=== PATIENT | male | born 1970 | race Caucasian/White ===

== ENCOUNTER 2017-07-27 04:35 | Emergency (ER) | payer SELFPAY ==
[~2017-07-27] VITALS: Ht 188 cm; Wt 72.7 kg
[~2017-07-27 04:35] MED LIST: NO HOME MEDS; OMEP40CA37 PO
[2017-07-27] MEDS ORDERED: ondansetron 4mg rapidly disintigrating tab PO ONE (04:50)
[2017-07-27] MEDS ORDERED: pantoprazole 40 MG vial IV ONE (06:25)
[2017-07-27] MEDS ORDERED: haloperidol 5mg tablet PO ONE (06:25)
[2017-07-27] MEDS ORDERED: normal saline 1000ML IV soln IVB ONE (06:25)
[2017-07-27] MEDS ORDERED: ondansetron/PF 4mg/2ml inj IV ONE (06:25)
[2017-07-27 06:50] VITALS: BP 155/94
[2017-07-27 06:58] LABS: BASOPHILS % (AUTO) 0.2 % (0-1); EOSINOPHILS # (AUTO) 0.3 X10'3 (0-0.9); EOSINOPHILS % (AUTO) 2.2 % (0-6); HEMATOCRIT 46.7 % (42.0-52.0); HEMOGLOBIN 16.2 g/dl (14.0-17.9); LYMPHOCYTES # (AUTO) 0.7 X10'3 (1.1-4.8); LYMPHOCYTES % (AUTO) 4.3 % (21-51); MEAN CORPUSCULAR HEMOGLOBIN 31.1 PG (27.0-31.0); MEAN CORPUSCULAR HGB CONC 34.7 % (33.0-36.5); MEAN CORPUSCULAR VOLUME 89.5 FL (78-98); MONOCYTES # (AUTO) 0.3 X10'3 (0-0.9); MONOCYTES % (AUTO) 1.8 % (2-12); NEUTROPHILS # (AUTO) 14.5 X10'3 (1.8-7.7); NEUTROPHILS % (AUTO) 91.5 % (42-75); PLATELET COUNT 348 X10'3 (140-440); RED BLOOD COUNT 5.21 X10'6 (4.70-6.10); RED CELL DISTRIBUTION WIDTH 13.6 % (11.5-14.5); WHITE BLOOD COUNT 15.9 X10'3 (4.5-11.0)
[2017-07-27 07:19] LABS: ALANINE AMINOTRANSFERASE 35 U/L (12-78); ALBUMIN 4.2 G/DL (3.4-5.0); ALBUMIN/GLOBULIN RATIO 1.2 (1.1-1.5); ALKALINE PHOSPHATASE 63 IU/L (46-116); ANION GAP 12 (8-16); ASPARTATE AMINO TRANSFERASE 18 U/L (10-37); BILIRUBIN,TOTAL 0.5 MG/DL (0.1-1.0); BLOOD UREA NITROGEN 18 MG/DL (7-18); BUN/CREATININE RATIO 20.2 (5.4-32.0); CALCIUM 9.7 MG/DL (8.5-10.1); CHLORIDE 105 MMOL/L (99-107); CREATININE 0.89 MG/DL (0.60-1.10); GLUCOSE 143 MG/DL (70-104); LIPASE 187 U/L (73-393); POTASSIUM 3.9 MMOL/L (3.5-5.1); SODIUM 142 MMOL/L (135-145); TOTAL CARBON DIOXIDE 25.1 MMOL/L (24-32); TOTAL PROTEIN 7.8 G/DL (6.4-8.2); eGFR > 90 ML/MIN
[2017-07-27] MEDS ORDERED: proCHLORperazine 10 MG/2 ml inj IV ONE (08:05)
[2017-07-27] MEDS ORDERED: morphine 4 MG/ML inj SYRINge IV ONE (08:25)
[2017-07-27] MEDS ORDERED: morphine 2 MG/ML inj. syringe IV ONE (08:25)
[2017-07-27] MEDS ORDERED: PROC25SU31 RC (09:51)
== END 2017-07-27 10:04 | disposition home or self-care (01) ==
LOC: ER 04:36
DX: G43.A0 Cyclical vomiting, in migraine, not intractable (principal); G89.29 Other chronic pain; F12.10 Cannabis abuse, uncomplicated; Z79.899 Other long term (current) drug therapy
CPT/HCPCS: 36415; 80053; 83690; 85025; 96361; 96374; 96375; 99284; C9113; J0780; J2270; J2405; J7030

== ENCOUNTER 2019-01-13 17:28 | Emergency (ER) | payer OTHER, MEDICAID ==
[~2019-01-13] VITALS: Ht 182.9 cm; Wt 81.8 kg
[~2019-01-13 17:28] MED LIST changes: +OMEP40CA13 PO; -OMEP40CA37 PO
[2019-01-13] MEDS ORDERED: ondansetron/PF 4mg/2ml inj IV ONE ×2 (19:00→22:15)
[2019-01-13] MEDS ORDERED: haloperidol lactate 5mg/ml inj IM ONE (19:00)
[2019-01-13] MEDS ORDERED: LORazepam 2 mg/ml vial IV ONE ×2 (19:00→22:15)
[2019-01-13] MEDS ORDERED: normal saline 1000ML IV soln IVB ONE ×2 (19:00→20:30)
[2019-01-13] MEDS ORDERED: diltiazem 5mg/ml 5ml inj. IV ONE (20:25)
[2019-01-13] MEDS ORDERED: magnesium 2GM in 50ml NS 50 ML IV ONE (20:35)
[2019-01-13 21:06] LABS: BASOPHILS # (AUTO) 0.1 X10'3 (0-0.2); BASOPHILS % (AUTO) 0.9 % (0-1); EOSINOPHILS % (AUTO) 0.2 % (0-6); HEMATOCRIT 48.7 % (42.0-52.0); HEMOGLOBIN 16.3 g/dl (14.0-17.9); LYMPHOCYTES # (AUTO) 0.7 X10'3 (1.1-4.8); MEAN CORPUSCULAR HEMOGLOBIN 30.8 PG (27.0-31.0); MEAN CORPUSCULAR HGB CONC 33.4 g/dL (33.0-36.5); MEAN CORPUSCULAR VOLUME 92.1 FL (78-98); MEAN PLATELET VOLUME 7.4 FL (7.4-10.4); MONOCYTES # (AUTO) 0.6 X10'3 (0-0.9); MONOCYTES % (AUTO) 4.8 % (2-12); NEUTROPHILS # (AUTO) 10.3 X10'3 (1.8-7.7); NEUTROPHILS % (AUTO) 88.1 % (42-75); PLATELET COUNT 318 X10'3 (140-440); RED BLOOD COUNT 5.29 X10'6 (4.70-6.10); RED CELL DISTRIBUTION WIDTH 14.5 % (11.5-14.5); WHITE BLOOD COUNT 11.7 X10'3 (4.5-11.0)
[2019-01-13 21:12] LABS: URINE AMPHETAMINE SCREEN NEGATIVE (Neg); URINE BARBITUATE SCREEN NEGATIVE (Neg); URINE BENZODIAZEPINES SCREEN NEGATIVE (Neg); URINE CANNABINOID SCREEN POSITIVE (Neg); URINE COCAINE SCREEN NEGATIVE (Neg); URINE METHADONE SCREEN NEGATIVE (Neg); URINE OPIATE SCREEN NEGATIVE (Neg); URINE PHENCYCLIDINE SCREEN NEGATIVE (Neg)
[2019-01-13 21:25] LABS: ALANINE AMINOTRANSFERASE 24 U/L (12-78); ALBUMIN/GLOBULIN RATIO 1.1 (1.1-1.5); ALKALINE PHOSPHATASE 58 IU/L (46-116); ANION GAP 10 (8-16); ASPARTATE AMINO TRANSFERASE 14 U/L (10-37); BILIRUBIN,TOTAL 0.3 MG/DL (0.1-1.0); BLOOD UREA NITROGEN 15 MG/DL (7-18); BUN/CREATININE RATIO 17.6 (5.4-32.0); CALCIUM 8.7 MG/DL (8.5-10.1); CHLORIDE 107 MMOL/L (99-107); CREATININE 0.85 MG/DL (0.60-1.10); GLUCOSE 125 MG/DL (70-104); POTASSIUM 4.3 MMOL/L (3.5-5.1); SODIUM 143 MMOL/L (135-145); TOTAL CARBON DIOXIDE 26.5 MMOL/L (24-32); TOTAL PROTEIN 7.5 G/DL (6.4-8.2); eGFR > 90 ML/MIN
[2019-01-13 21:41] LABS: PARTIAL THROMBOPLASTIN TIME 27 SECONDS (22-32)
[2019-01-13] MEDS ORDERED: ketamine 10mg/ml 20ml inj IV ONE (22:15)
[2019-01-13] MEDS ORDERED: ketamine 50 mg/ml 10ml vial IV ONE (22:25)
--- NOTE | 2019-01-13 23:23 | NUR ---
observing pt at bedside s\p syncronized cardioversion. pt is approx 45 mins post procedure and sleeping. he awakes to light sternal rub and verbal stimuli but remains quite sleepy. will continue to monitor. He remains on bedside monitoring equipment
--- NOTE | 2019-01-14 00:45 | NUR ---
pt lives alone and has no ride home. A taxi will be called for patient at a later time.
--- NOTE | 2019-01-14 00:52 | NUR ---
PT CONTINUES TO REST SOUNDLY BUT AROUSABLE TO LIGHT STERNAL RUB AND VOICE. FOLLOWS COMMANDS APPROPRIATELY AND VS WNL FOR PAST HOUR. WILL CONTINUE TO MONITOR
--- NOTE | 2019-01-14 01:39 | NUR ---
pt ambulatory to restroom and back to room
--- NOTE | 2019-01-14 01:42 | NUR ---
pt given water, juice and yogurt
--- NOTE | 2019-01-14 04:12 | NUR ---
no change in pt condition. will continue to monitor.
--- NOTE | 2019-01-14 05:59 | NUR ---
pt ambulated with steady gait to restroom and back to room. He is requesting to go home. We are attempting to locate the policy on how long post procedure pt has to be monitored for since he will not be going home with a responsible adult and will have no one at home to monitor him.
[2019-01-14 06:53] VITALS: BP 139/101
== END 2019-01-14 06:55 | disposition home or self-care (01) ==
LOC: ER 17:28
DX: G43.A0 Cyclical vomiting, in migraine, not intractable (principal); I48.91 Unspecified atrial fibrillation; F12.188 Cannabis abuse with other cannabis-induced disorder; R10.84 Generalized abdominal pain; G89.29 Other chronic pain; Z98.890 Other specified postprocedural states; Z79.899 Other long term (current) drug therapy
CPT/HCPCS: 36415; 71045; 80053; 80305; 84484; 85025; 85610; 85730; 92960; 93005; 94760; 96365; 96372; 96375; 96376; 99152; 99291; J1630; J2060; J2405; J3475; J7030; J3490

== ENCOUNTER 2019-08-24 16:55 | Emergency (ER) | payer MEDICAID, OTHER ==
[~2019-08-24] VITALS: Ht 188 cm; Wt 77.9 kg
[2019-08-24] MEDS ORDERED: TETanus/Pertussis (Acell)/Diphther VAC/PF (Tdap-Adult) 0.5ml syringe IMVAC ONE (17:10)
[2019-08-24] MEDS ORDERED: LIDOcaine 1% W/epiNEPHrine 1:200,000 10ml vial IJ ONE (17:10)
[2019-08-24] MEDS ORDERED: CEPH250T PO (18:16)
--- NOTE | 2019-08-24 18:31 | NUR ---
Report from [facility]
[2019-08-24 19:06] VITALS: BP 136/92
== END 2019-08-24 19:15 | disposition home or self-care (01) ==
LOC: ER 16:55
DX: S61.012A Laceration without foreign body of left thumb without damage to nail, initial encounter (principal); G89.29 Other chronic pain; F12.90 Cannabis use, unspecified, uncomplicated; Z79.899 Other long term (current) drug therapy; W26.0XXA Contact with knife, initial encounter; Y93.89 Activity, other specified; Y92.89 Other specified places as the place of occurrence of the external cause; Y99.8 Other external cause status
CPT/HCPCS: 12002; 90471; 90715; 99283

== ENCOUNTER 2019-08-30 13:40 | Emergency (ER) | payer OTHER ==
[~2019-08-30] VITALS: Ht 188 cm; Wt 81.8 kg
[~2019-08-30 13:40] MED LIST changes: +CEPH250T PO
[2019-08-30] MEDS ORDERED: LORazepam 2 mg/ml vial IV ONE (13:50)
[2019-08-30] MEDS ORDERED: ondansetron/PF 4mg/2ml inj IV ONE (13:50)
[2019-08-30] MEDS ORDERED: normal saline 1000ML IV soln IVB ONE (13:50)
[2019-08-30] MEDS ORDERED: haloperidol lactate 5mg/ml inj IM ONE (13:50)
[2019-08-30 14:19] LABS: BASOPHILS # (AUTO) 0.1 X10'3 (0-0.2); BASOPHILS % (AUTO) 0.7 % (0-1); EOSINOPHILS # (AUTO) 0.4 X10'3 (0-0.9); HEMATOCRIT 48.4 % (42.0-52.0); HEMOGLOBIN 16.5 g/dl (14.0-17.9); LYMPHOCYTES % (AUTO) 15.6 % (21-51); MEAN CORPUSCULAR HEMOGLOBIN 30.9 PG (27.0-31.0); MEAN CORPUSCULAR VOLUME 90.9 FL (78-98); MEAN PLATELET VOLUME 7.3 FL (7.4-10.4); MONOCYTES # (AUTO) 0.6 X10'3 (0-0.9); MONOCYTES % (AUTO) 4.9 % (2-12); NEUTROPHILS # (AUTO) 9.8 X10'3 (1.8-7.7); NEUTROPHILS % (AUTO) 75.8 % (42-75); PLATELET COUNT 346 X10'3 (140-440); RED BLOOD COUNT 5.33 X10'6 (4.70-6.10); RED CELL DISTRIBUTION WIDTH 14.1 % (11.5-14.5); WHITE BLOOD COUNT 12.9 X10'3 (4.5-11.0)
[2019-08-30 14:36] LABS: ALBUMIN/GLOBULIN RATIO 1.2 (1.1-1.5); ALKALINE PHOSPHATASE 67 IU/L (46-116); ANION GAP 9 (8-16); ASPARTATE AMINO TRANSFERASE 20 U/L (10-37); BILIRUBIN,TOTAL 0.4 MG/DL (0.1-1.0); BLOOD UREA NITROGEN 8 MG/DL (7-18); BUN/CREATININE RATIO 8.8 (5.4-32.0); CALCIUM 9.3 MG/DL (8.5-10.1); CHLORIDE 106 MMOL/L (99-107); CREATININE 0.91 MG/DL (0.60-1.10); GLUCOSE 112 MG/DL (70-104); LIPASE 177 U/L (73-393); SODIUM 143 MMOL/L (135-145); TOTAL CARBON DIOXIDE 27.6 MMOL/L (24-32); TOTAL PROTEIN 7.3 G/DL (6.4-8.2); eGFR 89 ML/MIN
[2019-08-30 14:37] LABS: POTASSIUM 4.4 MMOL/L (3.5-5.1)
[2019-08-30 14:45] LABS: ALANINE AMINOTRANSFERASE 15 U/L (12-78)
[2019-08-30 18:16] VITALS: BP 140/70
== END 2019-08-30 18:19 | disposition home or self-care (01) ==
LOC: ER 13:41
DX: R11.15 Cyclical vomiting syndrome unrelated to migraine (principal); R11.2 Nausea with vomiting, unspecified; G89.29 Other chronic pain; F12.90 Cannabis use, unspecified, uncomplicated; F17.200 Nicotine dependence, unspecified, uncomplicated; Z98.890 Other specified postprocedural states; Z79.2 Long term (current) use of antibiotics; Z79.899 Other long term (current) drug therapy
CPT/HCPCS: 36415; 80053; 83690; 85025; 96361; 96372; 96374; 96375; 99284; J1630; J2060; J2405; J7030

== ENCOUNTER 2019-10-11 13:56 | Emergency (ER) | payer OTHER ==
[~2019-10-11] VITALS: Ht 188 cm; Wt 80.0 kg
[~2019-10-11 13:56] MED LIST changes: -CEPH250T PO
[2019-10-11 14:42] LABS: BASOPHILS # (AUTO) 0.1 X10'3 (0-0.2); BASOPHILS % (AUTO) 0.6 % (0-1); EOSINOPHILS # (AUTO) 0.4 X10'3 (0-0.9); EOSINOPHILS % (AUTO) 2.4 % (0-6); HEMATOCRIT 49.8 % (42.0-52.0); HEMOGLOBIN 16.8 g/dl (14.0-17.9); MEAN CORPUSCULAR HEMOGLOBIN 30.9 PG (27.0-31.0); MEAN CORPUSCULAR HGB CONC 33.7 g/dL (33.0-36.5); MEAN CORPUSCULAR VOLUME 91.5 FL (78-98); MEAN PLATELET VOLUME 7.7 FL (7.4-10.4); MONOCYTES # (AUTO) 0.7 X10'3 (0-0.9); MONOCYTES % (AUTO) 4.6 % (2-12); NEUTROPHILS # (AUTO) 12.4 X10'3 (1.8-7.7); NEUTROPHILS % (AUTO) 79.4 % (42-75); PLATELET COUNT 338 X10'3 (140-440); RED BLOOD COUNT 5.44 X10'6 (4.70-6.10); RED CELL DISTRIBUTION WIDTH 14.1 % (11.5-14.5); WHITE BLOOD COUNT 15.6 X10'3 (4.5-11.0)
[2019-10-11 14:58] LABS: ALANINE AMINOTRANSFERASE 18 U/L (12-78); ALBUMIN 4.3 G/DL (3.4-5.0); ALBUMIN/GLOBULIN RATIO 1.2 (1.1-1.5); ALKALINE PHOSPHATASE 71 IU/L (46-116); ANION GAP 11 (8-16); ASPARTATE AMINO TRANSFERASE 16 U/L (10-37); BILIRUBIN,TOTAL 0.5 MG/DL (0.1-1.0); BLOOD UREA NITROGEN 9 MG/DL (7-18); BUN/CREATININE RATIO 9.3 (5.4-32.0); CALCIUM 9.9 MG/DL (8.5-10.1); CHLORIDE 106 MMOL/L (99-107); CREATININE 0.97 MG/DL (0.60-1.10); GLUCOSE 119 MG/DL (70-104); SODIUM 144 MMOL/L (135-145); TOTAL CARBON DIOXIDE 27.1 MMOL/L (24-32); TOTAL PROTEIN 7.8 G/DL (6.4-8.2); eGFR 82 ML/MIN
[2019-10-11] MEDS ORDERED: diphenhydrAMINE 50 mg/ml inj IV ONE (15:15)
[2019-10-11] MEDS ORDERED: LORazepam 2 mg/ml vial IV ONE (15:15)
[2019-10-11] MEDS ORDERED: proCHLORperazine 10 MG/2 ml inj IV ONE (15:15)
[2019-10-11] MEDS ORDERED: normal saline 1000ml 1,000 ML IV ONE (15:15)
[2019-10-11] MEDS ORDERED: ondansetron/PF 4mg/2ml inj IV ONE (15:25)
[2019-10-11] MEDS ORDERED: PROC-8 PO (17:16)
[2019-10-11] MEDS ORDERED: ONDA8TAB6 PO (17:16)
--- NOTE | 2019-10-11 18:03 | NUR ---
ATTEMPTED TO AWAKEN PATIENT FOR DISCHARGE. PATIENT IS VERY DROWSY AND DOES NOT WANT TO AWAKEN. STATES HE WILL HAVE TO CALL HIS SON FOR RIDE HOME, BUT DOES NOT HAVE HIS SON'S PHONE NUMBER AVAILABLE. DOZING ON GURNEY IN GOOD CONDITION AND IMPROVED NAUSEA AT THIS TIME.
[2019-10-11 18:28] VITALS: BP 146/83
== END 2019-10-11 19:54 | disposition home or self-care (01) ==
LOC: ER 13:56
DX: R11.15 Cyclical vomiting syndrome unrelated to migraine (principal); G89.29 Other chronic pain; F12.90 Cannabis use, unspecified, uncomplicated; Z79.899 Other long term (current) drug therapy
CPT/HCPCS: 36415; 80053; 85025; 96361; 96374; 96375; 99284; J0780; J1200; J2060; J2405; J7030

== ENCOUNTER 2019-11-30 17:48 | Emergency (ER) | payer OTHER ==
[~2019-11-30] VITALS: Ht 188 cm; Wt 81.8 kg
[~2019-11-30 17:48] MED LIST changes: +ONDA8TAB6 PO; +PROC-8 PO
[2019-11-30] MEDS ORDERED: morphine 4 MG/ML inj SYRINge IV STA (17:59)
[2019-11-30] MEDS ORDERED: ondansetron/PF 4mg/2ml inj IV ONE (18:00)
[2019-11-30] MEDS ORDERED: normal saline 1000ML IV soln IVB ONE ×2 (18:00→19:40)
[2019-11-30] MEDS ORDERED: proCHLORperazine 10 MG/2 ml inj IV ONE (18:10)
[2019-11-30 18:28] LABS: BASOPHILS % (AUTO) 0.3 % (0-1); EOSINOPHILS % (AUTO) 0.1 % (0-6); HEMATOCRIT 46.3 % (42.0-52.0); LYMPHOCYTES # (AUTO) 0.9 X10'3 (1.1-4.8); LYMPHOCYTES % (AUTO) 5.8 % (21-51); MEAN CORPUSCULAR HEMOGLOBIN 31.4 PG (27.0-31.0); MEAN CORPUSCULAR HGB CONC 34.6 g/dL (33.0-36.5); MEAN CORPUSCULAR VOLUME 90.5 FL (78-98); MEAN PLATELET VOLUME 7.4 FL (7.4-10.4); MONOCYTES # (AUTO) 0.6 X10'3 (0-0.9); MONOCYTES % (AUTO) 3.6 % (2-12); NEUTROPHILS # (AUTO) 14.6 X10'3 (1.8-7.7); NEUTROPHILS % (AUTO) 90.2 % (42-75); PLATELET COUNT 336 X10'3 (140-440); RED BLOOD COUNT 5.11 X10'6 (4.70-6.10); RED CELL DISTRIBUTION WIDTH 13.6 % (11.5-14.5); WHITE BLOOD COUNT 16.1 X10'3 (4.5-11.0)
[2019-11-30 18:29] LABS: ANION GAP 11 (8-16); CHLORIDE 106 MMOL/L (99-107); GLUCOSE 146 MG/DL (70-104); SODIUM 140 MMOL/L (135-145); TOTAL CARBON DIOXIDE 22.6 MMOL/L (24-32)
[2019-11-30 18:30] LABS: ALANINE AMINOTRANSFERASE 26 U/L (12-78); ALBUMIN 4.3 G/DL (3.4-5.0); ALBUMIN/GLOBULIN RATIO 1.2 (1.1-1.5); ALKALINE PHOSPHATASE 56 IU/L (46-116); ASPARTATE AMINO TRANSFERASE 16 U/L (10-37); BILIRUBIN,TOTAL 0.5 MG/DL (0.1-1.0); BLOOD UREA NITROGEN 10 MG/DL (7-18); BUN/CREATININE RATIO 8.9 (5.4-32.0); CALCIUM 9.3 MG/DL (8.5-10.1); CREATININE 1.12 MG/DL (0.60-1.10); LIPASE 92 U/L (73-393); TOTAL PROTEIN 7.8 G/DL (6.4-8.2); eGFR 70 ML/MIN
--- NOTE | 2019-11-30 18:35 | NUR ---
pt to ct of abd. just givenmsiv 6 mg iv and compazine and zofran dc'd as pt received 8 mg in route with ems. pt is 8 out of 10 constant pain to mid and lower abdome, non radiating. bp 162/90. aboe to stand and get in wc independatly.
[2019-11-30] MEDS ORDERED: PROC-8 PO (19:49)
[2019-11-30 21:50] VITALS: BP 162/109
== END 2019-11-30 21:54 | disposition home or self-care (01) ==
LOC: ER 17:48
DX: R11.15 Cyclical vomiting syndrome unrelated to migraine (principal); F12.10 Cannabis abuse, uncomplicated; R10.84 Generalized abdominal pain; G89.29 Other chronic pain; Z98.890 Other specified postprocedural states; Z79.899 Other long term (current) drug therapy
CPT/HCPCS: 36415; 74176; 80053; 83605; 83690; 84145; 85025; 87040; 96361; 96374; 96375; 99285; J0780; J2270; J7030

== ENCOUNTER 2019-12-02 08:46 | Emergency (ER) | payer SELFPAY ==
[~2019-12-02] VITALS: Ht 188 cm; Wt 82.0 kg
[2019-12-02] MEDS ORDERED: haloperidol lactate 5mg/ml inj IM ONE (09:05)
[2019-12-02] MEDS ORDERED: ketorolac trometh. 30mg/ml inj. IV ONE (09:05)
[2019-12-02] MEDS ORDERED: diphenhydrAMINE 50 mg/ml inj IV ONE (09:05)
[2019-12-02] MEDS ORDERED: normal saline 1000ML IV soln IVB ONE (09:05)
[2019-12-02] MEDS ORDERED: LORazepam 2 mg/ml vial IV ONE (09:05)
[2019-12-02] MEDS ORDERED: ondansetron/PF 4mg/2ml inj IV ONE (09:05)
[2019-12-02 09:22] LABS: BASOPHILS # (AUTO) 0.1 X10'3 (0-0.2); EOSINOPHILS # (AUTO) 0.1 X10'3 (0-0.9); EOSINOPHILS % (AUTO) 0.6 % (0-6); HEMATOCRIT 46.7 % (42.0-52.0); HEMOGLOBIN 15.8 g/dl (14.0-17.9); LYMPHOCYTES # (AUTO) 1.9 X10'3 (1.1-4.8); LYMPHOCYTES % (AUTO) 12.8 % (21-51); MEAN CORPUSCULAR HEMOGLOBIN 30.4 PG (27.0-31.0); MEAN CORPUSCULAR HGB CONC 33.8 g/dL (33.0-36.5); MEAN PLATELET VOLUME 7.1 FL (7.4-10.4); MONOCYTES # (AUTO) 0.9 X10'3 (0-0.9); NEUTROPHILS # (AUTO) 11.9 X10'3 (1.8-7.7); NEUTROPHILS % (AUTO) 79.6 % (42-75); PLATELET COUNT 359 X10'3 (140-440); RED BLOOD COUNT 5.18 X10'6 (4.70-6.10); RED CELL DISTRIBUTION WIDTH 13.8 % (11.5-14.5)
[2019-12-02 09:35] LABS: ALANINE AMINOTRANSFERASE 24 U/L (12-78); ALBUMIN 4.1 G/DL (3.4-5.0); ALBUMIN/GLOBULIN RATIO 1.2 (1.1-1.5); ALKALINE PHOSPHATASE 53 IU/L (46-116); ANION GAP 10 (8-16); ASPARTATE AMINO TRANSFERASE 16 U/L (10-37); BILIRUBIN,TOTAL 0.6 MG/DL (0.1-1.0); BLOOD UREA NITROGEN 13 MG/DL (7-18); BUN/CREATININE RATIO 13.3 (5.4-32.0); CALCIUM 9.3 MG/DL (8.5-10.1); CHLORIDE 104 MMOL/L (99-107); CREATININE 0.98 MG/DL (0.60-1.10); GLUCOSE 126 MG/DL (70-104); LIPASE 148 U/L (73-393); POTASSIUM 3.8 MMOL/L (3.5-5.1); SODIUM 139 MMOL/L (135-145); TOTAL CARBON DIOXIDE 24.7 MMOL/L (24-32); TOTAL PROTEIN 7.6 G/DL (6.4-8.2); eGFR 81 ML/MIN
--- NOTE | 2019-12-02 10:48 | NUR ---
notified dr anderson that pt was unable to drink water just had one sip and stated that he is feeling upset in his abdomen,recheked the vitals ,dr anderson said he is going to order compazine .
[2019-12-02] MEDS ORDERED: proCHLORperazine 10 MG/2 ml inj IV ONE (10:50)
--- NOTE | 2019-12-02 10:56 | NUR ---
pt medicated with compazine informed that will try with po challenge in 10-15 mins.pt verbalized understanding.
[2019-12-02 11:13] LABS: CLARITY,URINE CLEAR (Clear); COLOR,URINE YELLOW (Yellow); GLUCOSE, URINE NEGATIVE (Neg); KETONES,URINE 15 mg/dl (Neg); LEUKOCYTE ESTERASE ,URINE NEGATIVE (Neg); NITRITES, URINE NEGATIVE (Neg); OCCULT BLOOD,URINE SMALL (Neg); PH,URINE 7.5 (4.8-8.0); PROTEIN,URINE NEGATIVE (Neg); UROBILINOGEN,URINE 0.2 E.U/dL (0.2-1.0)
[2019-12-02 11:14] LABS: UA COLLECTION TYPE VOIDED
--- NOTE | 2019-12-02 11:24 | NUR ---
pt reassesd for nausea after the po fluid ,pt stated that he is nauseous but actually pt was able to drink fluid and no vomiting noted ,pt more sleepy ,just want to sleep nad rest ,asked if he has ride available pt stated that he might have ride by cab or call friend ,md justin armstrong and also primary nurse.
[2019-12-02 11:25] LABS: WBC,URINE 0-4 /HPF (0-4)
[2019-12-02 11:26] LABS: BACTERIA,URINE NONE SEEN /HPF (Neg); SQUAMOUS EPITHELIAL CELL,UR FEW /LPF (FEW)
[2019-12-02 12:25] VITALS: BP 101/76
== END 2019-12-02 12:24 | disposition home or self-care (01) ==
LOC: ER 08:47
DX: R11.15 Cyclical vomiting syndrome unrelated to migraine (principal); R11.2 Nausea with vomiting, unspecified; G89.29 Other chronic pain; F17.200 Nicotine dependence, unspecified, uncomplicated; F12.90 Cannabis use, unspecified, uncomplicated; Z98.890 Other specified postprocedural states; Z79.899 Other long term (current) drug therapy
CPT/HCPCS: 36415; 80053; 81001; 83690; 85025; 96361; 96372; 96374; 96375; 99285; J0780; J1200; J1630; J1885; J2060; J2405; J7030

== ENCOUNTER 2019-12-03 09:11 | Emergency (ER) | payer SELFPAY ==
[~2019-12-03] VITALS: Ht 180.3 cm; Wt 57.0 kg
[2019-12-03] MEDS ORDERED: normal saline 1000ML IV soln IVB ONE (09:20)
[2019-12-03] MEDS ORDERED: diphenhydrAMINE 50 mg/ml inj IV ONE (09:20)
[2019-12-03] MEDS ORDERED: haloperidol lactate 5mg/ml inj IM ONE (09:20)
[2019-12-03] MEDS ORDERED: proCHLORperazine 10 MG/2 ml inj IV ONE (09:20)
[2019-12-03 11:00] VITALS: BP 147/87
== END 2019-12-03 11:02 | disposition home or self-care (01) ==
LOC: ER 09:11
DX: R11.15 Cyclical vomiting syndrome unrelated to migraine (principal); R11.2 Nausea with vomiting, unspecified; F12.10 Cannabis abuse, uncomplicated; G89.29 Other chronic pain; Z98.890 Other specified postprocedural states; Z79.899 Other long term (current) drug therapy
CPT/HCPCS: 96361; 96372; 96374; 96375; 99284; J0780; J1200; J1630; J7030

== ENCOUNTER 2020-02-21 11:30 | Emergency (ER) | payer OTHER ==
[~2020-02-21] VITALS: Ht 177.8 cm; Wt 90.0 kg
[2020-02-21] MEDS ORDERED: diphenhydrAMINE 25mg capsule PO ONE (13:20)
[2020-02-21] MEDS ORDERED: normal saline 1000ML IV soln IVB ONE ×2 (13:20→14:40)
[2020-02-21] MEDS ORDERED: dicyclomine 10 MG capsule PO ONE (13:20)
[2020-02-21] MEDS ORDERED: haloperidol lactate 5mg/ml inj IM ONE (13:20)
[2020-02-21 13:45] VITALS: BP 156/93
[2020-02-21 14:04] LABS: BASOPHILS # (AUTO) 0.1 X10'3 (0-0.2); BASOPHILS % (AUTO) 0.8 % (0-1); EOSINOPHILS % (AUTO) 0.1 % (0-6); HEMOGLOBIN 17.8 g/dl (14.0-17.9); LYMPHOCYTES # (AUTO) 1.9 X10'3 (1.1-4.8); LYMPHOCYTES % (AUTO) 12.6 % (21-51); MEAN CORPUSCULAR HEMOGLOBIN 30.5 PG (27.0-31.0); MEAN CORPUSCULAR HGB CONC 34.2 g/dL (33.0-36.5); MEAN CORPUSCULAR VOLUME 89.3 FL (78-98); MEAN PLATELET VOLUME 7.3 FL (7.4-10.4); MONOCYTES # (AUTO) 1.2 X10'3 (0-0.9); MONOCYTES % (AUTO) 8.1 % (2-12); NEUTROPHILS # (AUTO) 11.6 X10'3 (1.8-7.7); NEUTROPHILS % (AUTO) 78.4 % (42-75); PLATELET COUNT 398 X10'3 (140-440); RED BLOOD COUNT 5.82 X10'6 (4.70-6.10); RED CELL DISTRIBUTION WIDTH 13.4 % (11.5-14.5); WHITE BLOOD COUNT 14.8 X10'3 (4.5-11.0)
[2020-02-21 14:18] LABS: ALANINE AMINOTRANSFERASE 19 U/L (12-78); ALBUMIN 4.7 G/DL (3.4-5.0); ALBUMIN/GLOBULIN RATIO 1.2 (1.1-1.5); ALKALINE PHOSPHATASE 67 IU/L (46-116); ANION GAP 13 (8-16); ASPARTATE AMINO TRANSFERASE 9 U/L (10-37); BLOOD UREA NITROGEN 20 MG/DL (7-18); BUN/CREATININE RATIO 18.2 (5.4-32.0); CALCIUM 10.2 MG/DL (8.5-10.1); CHLORIDE 96 MMOL/L (99-107); GLUCOSE 125 MG/DL (70-104); LIPASE 114 U/L (73-393); POTASSIUM 3.6 MMOL/L (3.5-5.1); SODIUM 134 MMOL/L (135-145); TOTAL CARBON DIOXIDE 24.6 MMOL/L (24-32); TOTAL PROTEIN 8.5 G/DL (6.4-8.2); eGFR 71 ML/MIN
== END 2020-02-21 16:10 | disposition home or self-care (01) ==
LOC: ER 11:31
DX: R11.15 Cyclical vomiting syndrome unrelated to migraine (principal); R11.2 Nausea with vomiting, unspecified; R10.84 Generalized abdominal pain; R06.02 Shortness of breath; G89.29 Other chronic pain; F12.90 Cannabis use, unspecified, uncomplicated; Z98.890 Other specified postprocedural states; Z79.899 Other long term (current) drug therapy
CPT/HCPCS: 36415; 80053; 83690; 85025; 96360; 96361; 96372; 99283; J1630; J7030; Q0163

== ENCOUNTER 2020-02-22 08:40 | Emergency (ER) | payer OTHER ==
[~2020-02-22] VITALS: Ht 188 cm; Wt 77.3 kg
[2020-02-22] MEDS ORDERED: diphenhydrAMINE 50 mg/ml inj IV ONE (09:35)
[2020-02-22] MEDS ORDERED: haloperidol lactate 5mg/ml inj IM ONE (09:35)
[2020-02-22] MEDS ORDERED: ketorolac tromethamine 15mg/ml inj. IV ONE (09:35)
[2020-02-22] MEDS ORDERED: LORazepam 2 mg/ml vial IV ONE (09:35)
[2020-02-22 12:09] VITALS: BP 107/65
== END 2020-02-22 12:16 | disposition home or self-care (01) ==
LOC: ER 08:40
DX: R11.15 Cyclical vomiting syndrome unrelated to migraine (principal); R11.2 Nausea with vomiting, unspecified; R19.7 Diarrhea, unspecified; R10.13 Epigastric pain; G89.29 Other chronic pain; F12.90 Cannabis use, unspecified, uncomplicated; Z98.890 Other specified postprocedural states; Z79.899 Other long term (current) drug therapy
CPT/HCPCS: 76700; 96372; 96374; 96375; 99285; J1200; J1630; J1885; J2060

== ENCOUNTER 2020-02-27 01:11 | Emergency (ER) | payer OTHER ==
[~2020-02-27] VITALS: Ht 190.5 cm; Wt 75.0 kg
[2020-02-27 01:18] VITALS: BP 176/109
[2020-02-27] MEDS ORDERED: normal saline 1000ML IV soln IVB ONE (01:25)
[2020-02-27] MEDS ORDERED: morphine 4 MG/ML inj SYRINge IV PRN (01:25)
[2020-02-27] MEDS ORDERED: ketorolac trometh. 30mg/ml inj. IV ONE (01:25)
[2020-02-27] MEDS ORDERED: ondansetron/PF 4mg/2ml inj IV ONE (01:25)
[2020-02-27 01:33] LABS: BASOPHILS # (AUTO) 0.1 X10'3 (0-0.2); BASOPHILS % (AUTO) 0.5 % (0-1); EOSINOPHILS # (AUTO) 0.2 X10'3 (0-0.9); EOSINOPHILS % (AUTO) 1.1 % (0-6); HEMATOCRIT 44.3 % (42.0-52.0); HEMOGLOBIN 15.6 g/dl (14.0-17.9); LYMPHOCYTES % (AUTO) 12.8 % (21-51); MEAN CORPUSCULAR HEMOGLOBIN 31.7 PG (27.0-31.0); MEAN CORPUSCULAR HGB CONC 35.2 g/dL (33.0-36.5); MEAN PLATELET VOLUME 6.9 FL (7.4-10.4); MONOCYTES # (AUTO) 1.1 X10'3 (0-0.9); MONOCYTES % (AUTO) 6.9 % (2-12); NEUTROPHILS # (AUTO) 12.3 X10'3 (1.8-7.7); NEUTROPHILS % (AUTO) 78.7 % (42-75); PLATELET COUNT 355 X10'3 (140-440); RED BLOOD COUNT 4.92 X10'6 (4.70-6.10); RED CELL DISTRIBUTION WIDTH 13.1 % (11.5-14.5); WHITE BLOOD COUNT 15.6 X10'3 (4.5-11.0)
[2020-02-27] MEDS ORDERED: haloperidol lactate 5mg/ml inj IM ONE (01:40)
[2020-02-27] MEDS ORDERED: diphenhydrAMINE 50 mg/ml inj IV ONE (01:40)
[2020-02-27 01:45] LABS: ALANINE AMINOTRANSFERASE 18 U/L (12-78); ALBUMIN/GLOBULIN RATIO 1.3 (1.1-1.5); ALKALINE PHOSPHATASE 56 IU/L (46-116); ANION GAP 10 (8-16); ASPARTATE AMINO TRANSFERASE 9 U/L (10-37); BILIRUBIN,TOTAL 0.6 MG/DL (0.1-1.0); BLOOD UREA NITROGEN 9 MG/DL (7-18); BUN/CREATININE RATIO 10.5 (5.4-32.0); CALCIUM 8.9 MG/DL (8.5-10.1); CHLORIDE 100 MMOL/L (99-107); CREATININE 0.86 MG/DL (0.60-1.10); GLUCOSE 124 MG/DL (70-104); LIPASE 149 U/L (73-393); POTASSIUM 3.3 MMOL/L (3.5-5.1); SODIUM 137 MMOL/L (135-145); TOTAL PROTEIN 7.1 G/DL (6.4-8.2); eGFR > 90 ML/MIN
--- NOTE | 2020-02-27 01:51 | NUR ---
pt unable to provide urine sample at this time- will check back with patient after IV bolus finishes
[2020-02-27 02:57] LABS: CLARITY,URINE CLEAR (Clear); COLOR,URINE YELLOW (Yellow); GLUCOSE, URINE NEGATIVE (Neg); KETONES,URINE 15 mg/dl (Neg); LEUKOCYTE ESTERASE ,URINE NEGATIVE (Neg); NITRITES, URINE NEGATIVE (Neg); OCCULT BLOOD,URINE TRACE-INTACT (Neg); PH,URINE 7.5 (4.8-8.0); PROTEIN,URINE NEGATIVE (Neg); UROBILINOGEN,URINE 0.2 E.U/dL (0.2-1.0)
[2020-02-27 03:03] LABS: UA COLLECTION TYPE URINAL
[2020-02-27 03:06] LABS: BACTERIA,URINE NONE SEEN /HPF (Neg); RBC,URINE 0-2 /HPF (0-2); SQUAMOUS EPITHELIAL CELL,UR NONE SEEN /LPF (FEW); WBC,URINE NONE SEEN /HPF (0-4)
== END 2020-02-27 03:11 | disposition home or self-care (01) ==
LOC: ER 01:12
DX: R11.15 Cyclical vomiting syndrome unrelated to migraine (principal); F12.10 Cannabis abuse, uncomplicated; G89.29 Other chronic pain; K56.609 Unspecified intestinal obstruction, unspecified as to partial versus complete obstruction; Z79.899 Other long term (current) drug therapy; Z98.890 Other specified postprocedural states
CPT/HCPCS: 36415; 80053; 81001; 83690; 85025; 96361; 96372; 96374; 96375; 99284; J1200; J1630; J1885; J2270; J2405; J7030

== ENCOUNTER 2020-02-28 18:46 | Emergency (ER) | payer OTHER ==
[~2020-02-28] VITALS: Ht 188 cm; Wt 75.0 kg
[2020-02-28] MEDS ORDERED: normal saline 1000ML IV soln IV ONE (19:00)
[2020-02-28] MEDS ORDERED: haloperidol lactate 5mg/ml inj IM ONE (19:00)
[2020-02-28] MEDS ORDERED: LORazepam 2 mg/ml vial IV ONE (19:00)
[2020-02-28] MEDS ORDERED: famotidine/PF 10 mg/ml inj IV ONE (19:40)
[2020-02-28 19:44] LABS: HEMOGLOBIN 15.6 g/dl (14.0-17.9); MEAN PLATELET VOLUME 7.2 FL (7.4-10.4); WHITE BLOOD COUNT 18.4 X10'3 (4.5-11.0)
[2020-02-28 19:46] LABS: BASOPHILS # (AUTO) 0.2 X10'3 (0-0.2); BASOPHILS % (AUTO) 0.9 % (0-1); EOSINOPHILS # (AUTO) 0.2 X10'3 (0-0.9); HEMATOCRIT 44.9 % (42.0-52.0); LYMPHOCYTES # (AUTO) 1.4 X10'3 (1.1-4.8); LYMPHOCYTES % (AUTO) 7.6 % (21-51); MEAN CORPUSCULAR HEMOGLOBIN 31.7 PG (27.0-31.0); MEAN CORPUSCULAR HGB CONC 34.7 g/dL (33.0-36.5); MEAN CORPUSCULAR VOLUME 91.5 FL (78-98); MONOCYTES % (AUTO) 5.7 % (2-12); NEUTROPHILS # (AUTO) 15.6 X10'3 (1.8-7.7); NEUTROPHILS % (AUTO) 84.8 % (42-75); PLATELET COUNT 381 X10'3 (140-440); RED BLOOD COUNT 4.91 X10'6 (4.70-6.10); RED CELL DISTRIBUTION WIDTH 13.6 % (11.5-14.5)
[2020-02-28 19:47] LABS: ALANINE AMINOTRANSFERASE 15 U/L (12-78); ALBUMIN 4.4 G/DL (3.4-5.0); ALBUMIN/GLOBULIN RATIO 1.4 (1.1-1.5); ALKALINE PHOSPHATASE 62 IU/L (46-116); ANION GAP 8 (8-16); ASPARTATE AMINO TRANSFERASE 13 U/L (10-37); BILIRUBIN,TOTAL 0.4 MG/DL (0.1-1.0); BLOOD UREA NITROGEN 9 MG/DL (7-18); BUN/CREATININE RATIO 10.5 (5.4-32.0); CALCIUM 9.2 MG/DL (8.5-10.1); CHLORIDE 102 MMOL/L (99-107); CREATININE 0.86 MG/DL (0.60-1.10); GLUCOSE 127 MG/DL (70-104); LIPASE 247 U/L (73-393); POTASSIUM 3.7 MMOL/L (3.5-5.1); SODIUM 139 MMOL/L (135-145); TOTAL CARBON DIOXIDE 29.3 MMOL/L (24-32); TOTAL PROTEIN 7.6 G/DL (6.4-8.2); eGFR > 90 ML/MIN
--- NOTE | 2020-02-28 20:54 | NUR ---
Patient resting comfortably
--- NOTE | 2020-02-28 23:34 | NUR ---
PT WALKED 50 FEET WITH NO DIFFICULTY. CAB CALLED FOR PT DUE TO MEDICATION ADMINISTRATION IN ER, PT PAYING. WAITING IN LOBBY FOR CAB
[2020-02-28 23:35] VITALS: BP 118/78
== END 2020-02-28 23:47 | disposition home or self-care (01) ==
LOC: ER 18:47
DX: F12.188 Cannabis abuse with other cannabis-induced disorder (principal); R11.15 Cyclical vomiting syndrome unrelated to migraine; G89.29 Other chronic pain; R10.10 Upper abdominal pain, unspecified; Z79.899 Other long term (current) drug therapy
CPT/HCPCS: 80053; 83690; 85025; 96361; 96372; 96374; 96375; 99284; J1630; J2060; J3490; J7030

== ENCOUNTER 2020-03-07 09:22 | Emergency (ER) | payer OTHER ==
[~2020-03-07] VITALS: Ht 188 cm; Wt 72.0 kg
[2020-03-07] MEDS ORDERED: mag hydrox/Alum hydrox/simeth 30ml oral suspension PO ONE (10:25)
[2020-03-07] MEDS ORDERED: famotidine/PF 10 mg/ml inj IV ONE (10:25)
[2020-03-07] MEDS ORDERED: normal saline 1000ml 1,000 ML IV ONE (10:25)
[2020-03-07] MEDS ORDERED: pantoprazole 40 MG vial IV ONE (10:25)
[2020-03-07] MEDS ORDERED: LIDOcaine Viscous 15ml cup MM ONE (10:25)
[2020-03-07 10:59] LABS: BASOPHILS # (AUTO) 0.1 X10'3 (0-0.2); BASOPHILS % (AUTO) 0.8 % (0-1); EOSINOPHILS # (AUTO) 0.1 X10'3 (0-0.9); EOSINOPHILS % (AUTO) 1.1 % (0-6); HEMATOCRIT 50.4 % (42.0-52.0); HEMOGLOBIN 17.6 g/dl (14.0-17.9); LYMPHOCYTES # (AUTO) 1.7 X10'3 (1.1-4.8); LYMPHOCYTES % (AUTO) 13.4 % (21-51); MEAN CORPUSCULAR HEMOGLOBIN 31.8 PG (27.0-31.0); MEAN PLATELET VOLUME 6.7 FL (7.4-10.4); MONOCYTES % (AUTO) 7.5 % (2-12); NEUTROPHILS # (AUTO) 9.9 X10'3 (1.8-7.7); NEUTROPHILS % (AUTO) 77.2 % (42-75); PLATELET COUNT 467 X10'3 (140-440); RED BLOOD COUNT 5.53 X10'6 (4.70-6.10); RED CELL DISTRIBUTION WIDTH 13.6 % (11.5-14.5); WHITE BLOOD COUNT 12.8 X10'3 (4.5-11.0)
[2020-03-07 11:12] LABS: ALANINE AMINOTRANSFERASE 23 U/L (12-78); ALBUMIN 4.4 G/DL (3.4-5.0); ALBUMIN/GLOBULIN RATIO 1.2 (1.1-1.5); ALKALINE PHOSPHATASE 64 IU/L (46-116); ANION GAP 13 (8-16); ASPARTATE AMINO TRANSFERASE 13 U/L (10-37); BILIRUBIN,TOTAL 0.6 MG/DL (0.1-1.0); BLOOD UREA NITROGEN 18 MG/DL (7-18); BUN/CREATININE RATIO 18.9 (5.4-32.0); CALCIUM 9.9 MG/DL (8.5-10.1); CHLORIDE 98 MMOL/L (99-107); CREATININE 0.95 MG/DL (0.60-1.10); GLUCOSE 113 MG/DL (70-104); LIPASE 137 U/L (73-393); POTASSIUM 3.9 MMOL/L (3.5-5.1); SODIUM 135 MMOL/L (135-145); TOTAL CARBON DIOXIDE 24.1 MMOL/L (24-32); TOTAL PROTEIN 8.2 G/DL (6.4-8.2); eGFR 84 ML/MIN
[2020-03-07] MEDS ORDERED: ONDA4TAB6 PO (11:22)
[2020-03-07] MEDS ORDERED: PANT20TA18 PO (11:22)
[2020-03-07 11:32] VITALS: BP 152/98
[2020-03-08] MEDS ORDERED: PROM25SU9 RC (20:00)
== END 2020-03-07 11:37 | disposition home or self-care (01) ==
LOC: ER 09:22
DX: R11.15 Cyclical vomiting syndrome unrelated to migraine (principal); R10.84 Generalized abdominal pain; R53.83 Other fatigue; R11.2 Nausea with vomiting, unspecified; R53.1 Weakness; G89.29 Other chronic pain; F12.90 Cannabis use, unspecified, uncomplicated; Z98.890 Other specified postprocedural states; Z79.899 Other long term (current) drug therapy
CPT/HCPCS: 36415; 80053; 83690; 85025; 96361; 96374; 96375; 99284; C9113; J3490; J7030

== ENCOUNTER 2020-03-08 16:33 | Emergency (ER) | payer OTHER ==
[~2020-03-08] VITALS: Ht 188 cm; Wt 73.0 kg
[~2020-03-08 16:33] MED LIST changes: +ONDA4TAB6 PO; +PANT20TA18 PO
[2020-03-08] MEDS ORDERED: dextrose 5%-normal saline 1,000 ML IV ONE (18:20)
[2020-03-08] MEDS ORDERED: diphenhydrAMINE 50 mg/ml inj IV ONE (18:25)
[2020-03-08] MEDS ORDERED: metoclopramide 5 mg/ml inj IV ONE (18:25)
[2020-03-08] MEDS ORDERED: LORazepam 2 mg/ml vial IV ONE (18:25)
[2020-03-08] MEDS ORDERED: haloperidol lactate 5mg/ml inj IM ONE (18:25)
[2020-03-08] MEDS ORDERED: ondansetron/PF 4mg/2ml inj IV ONE (18:25)
[2020-03-08] MEDS ORDERED: pantoprazole 40 MG vial IV ONE (18:55)
[2020-03-08] MEDS ORDERED: ketorolac trometh. 30mg/ml inj. IV ONE (18:55)
--- NOTE | 2020-03-08 19:43 | NUR ---
PT GIVEN MANY IV MEDS FOR PAIN AND NAUSEA. PAIN WAS 9 OUT OF 10, STABBING BURNING TO MID AND UPPER ABD. PT REPORTS NO BM IN 1 WEEK AND WAS ONLY SMALL LAMT OF DIARRHEA. STATES HAS HAD NO SOLID FOOD AND HAS ONLY BEEN DRINKING REYES SUN JUICES, OFTEN VOMITING THIS UP. PTS FRIEND BROUGHT HIM HERE. STATES HE WILL NEED TO CALL A TAXI FOR A RIDE HOME. PT IS POLITE AND COOPERATIVE. ACCUCHECK 137, I WILL ASK DR. GORDON IF D5 BOLUS STILL NECESSARY.
--- NOTE | 2020-03-08 19:46 | NUR ---
PER DR. GORDON , GIVE BOLUS OF D5.
[2020-03-08] MEDS ORDERED: PROM25SU9 RC (20:00)
--- NOTE | 2020-03-08 20:24 | NUR ---
PT VERY SOMULANT, EASY TO AROUSE BUT FALLS RIGHT BACK ASLEEP. PT HAS DC PAPERS READY. WILL ALLOW PT TO REST A WHILE LONGER.
[2020-03-08 21:13] VITALS: BP 132/87
--- NOTE | 2020-03-08 21:14 | NUR ---
PT AWAKENED. REPORTS NO NAUSEA AND NO PAIN AT ALL. PTWILL NEED A TAXI CALLED FOR RIDE HOME.
--- NOTE | 2020-03-08 21:23 | NUR ---
[facility] CALLED, PT TO PAY FOR HIS CAB RIDE. WILL BE APROX 1 HR FOR CAB. PT WAITING IN LOBBY
== END 2020-03-08 21:23 | disposition home or self-care (01) ==
LOC: ER 16:33
DX: R11.15 Cyclical vomiting syndrome unrelated to migraine (principal); R11.2 Nausea with vomiting, unspecified; R10.84 Generalized abdominal pain; G89.29 Other chronic pain; F12.90 Cannabis use, unspecified, uncomplicated; Z98.890 Other specified postprocedural states; Z79.899 Other long term (current) drug therapy
CPT/HCPCS: 82948; 96361; 96372; 96374; 96375; 99284; C9113; J1200; J1630; J1885; J2060; J2405; J2765; J7042

== ENCOUNTER 2020-03-11 09:39 | Emergency (ER) | payer OTHER ==
[~2020-03-11] VITALS: Ht 188 cm; Wt 77.0 kg
[~2020-03-11 09:39] MED LIST changes: +PROM25SU9 RC
[2020-03-11 10:29] LABS: BASOPHILS # (AUTO) 0.1 X10'3 (0-0.2); BASOPHILS % (AUTO) 0.7 % (0-1); EOSINOPHILS # (AUTO) 0.1 X10'3 (0-0.9); EOSINOPHILS % (AUTO) 1.1 % (0-6); HEMATOCRIT 46.8 % (42.0-52.0); MEAN CORPUSCULAR HEMOGLOBIN 31.5 PG (27.0-31.0); MEAN CORPUSCULAR HGB CONC 34.3 g/dL (33.0-36.5); MONOCYTES # (AUTO) 0.3 X10'3 (0-0.9); MONOCYTES % (AUTO) 2.3 % (2-12); NEUTROPHILS # (AUTO) 10.7 X10'3 (1.8-7.7); NEUTROPHILS % (AUTO) 87.9 % (42-75); PLATELET COUNT 414 X10'3 (140-440); RED BLOOD COUNT 5.08 X10'6 (4.70-6.10); RED CELL DISTRIBUTION WIDTH 13.8 % (11.5-14.5); WHITE BLOOD COUNT 12.2 X10'3 (4.5-11.0)
[2020-03-11 10:48] LABS: ALANINE AMINOTRANSFERASE 21 U/L (12-78); ALBUMIN 4.1 G/DL (3.4-5.0); ALBUMIN/GLOBULIN RATIO 1.2 (1.1-1.5); ALKALINE PHOSPHATASE 65 IU/L (46-116); ANION GAP 10 (8-16); ASPARTATE AMINO TRANSFERASE 11 U/L (10-37); BILIRUBIN,TOTAL 0.3 MG/DL (0.1-1.0); BLOOD UREA NITROGEN 9 MG/DL (7-18); BUN/CREATININE RATIO 9.9 (5.4-32.0); CALCIUM 9.3 MG/DL (8.5-10.1); CHLORIDE 102 MMOL/L (99-107); CREATININE 0.91 MG/DL (0.60-1.10); GLUCOSE 140 MG/DL (70-104); LIPASE 209 U/L (73-393); SODIUM 139 MMOL/L (135-145); TOTAL CARBON DIOXIDE 27.5 MMOL/L (24-32); TOTAL PROTEIN 7.5 G/DL (6.4-8.2); eGFR 89 ML/MIN
--- NOTE | 2020-03-11 12:19 | NUR ---
pt refused gown
--- NOTE | 2020-03-11 13:45 | NUR ---
Pt sleeping on gurney. Respirations unlabored. NAD
[2020-03-11] MEDS ORDERED: pantoprazole 40 MG vial IV ONE (14:05)
[2020-03-11] MEDS ORDERED: diphenhydrAMINE 50 mg/ml inj IM ONE (14:05)
[2020-03-11] MEDS ORDERED: haloperidol lactate 5mg/ml inj IM ONE (14:05)
[2020-03-11] MEDS ORDERED: normal saline 1000ML IV soln IVB ONE (14:05)
[2020-03-11] MEDS ORDERED: metoclopramide 5 mg/ml inj IM ONE (14:05)
[2020-03-11] MEDS ORDERED: LORazepam 2 mg/ml vial IM ONE (14:05)
[2020-03-11] MEDS ORDERED: ketorolac trometh. 30mg/ml inj. IV ONE (14:05)
[2020-03-11] MEDS ORDERED: ondansetron/PF 4mg/2ml inj IM ONE (14:05)
[2020-03-11 14:09] LABS: CLARITY,URINE CLOUDY (Clear); COLOR,URINE YELLOW (Yellow); GLUCOSE, URINE NEGATIVE (Neg); KETONES,URINE NEGATIVE (Neg); LEUKOCYTE ESTERASE ,URINE NEGATIVE (Neg); NITRITES, URINE NEGATIVE (Neg); OCCULT BLOOD,URINE TRACE-INTACT (Neg); PH,URINE 8.5 (4.8-8.0); PROTEIN,URINE NEGATIVE (Neg); UA COLLECTION TYPE CLN CATCH MIDSTREAM; UROBILINOGEN,URINE 0.2 E.U/dL (0.2-1.0)
[2020-03-11] MEDS ORDERED: LORazepam 2 mg/ml vial IV ONE (14:10)
[2020-03-11] MEDS ORDERED: ondansetron/PF 4mg/2ml inj IV ONE (14:10)
[2020-03-11] MEDS ORDERED: metoclopramide 5 mg/ml inj IV ONE (14:10)
[2020-03-11] MEDS ORDERED: diphenhydrAMINE 50 mg/ml inj IV ONE (14:10)
[2020-03-11 14:17] LABS: AMORPHOUS PHOSPHATES 4+; SQUAMOUS EPITHELIAL CELL,UR FEW /LPF (FEW)
[2020-03-11 14:22] LABS: COARSE GRANULAR CAST 0-3 /LPF (NEGATIVE)
[2020-03-11 14:26] LABS: MUCUS STRANDS MODERATE /LPF (Neg)
[2020-03-11 14:28] LABS: BACTERIA,URINE 1+ /HPF (Neg); WBC,URINE 0-4 /HPF (0-4)
[2020-03-11 14:53] VITALS: BP 176/106
[2020-03-11] MEDS ORDERED: METO-292 PO (15:06)
== END 2020-03-11 16:01 | disposition home or self-care (01) ==
LOC: ER 09:42
DX: R11.15 Cyclical vomiting syndrome unrelated to migraine (principal); K56.609 Unspecified intestinal obstruction, unspecified as to partial versus complete obstruction; G89.29 Other chronic pain; M54.9 Dorsalgia, unspecified; F12.10 Cannabis abuse, uncomplicated
CPT/HCPCS: 36415; 80053; 81001; 83690; 85025; 96361; 96372; 96374; 96375; 99284; C9113; J1200; J1630; J1885; J2060; J2405; J2765; J7030